=== PATIENT | female | born 1985 | race Caucasian/White ===

== ENCOUNTER 2018-03-17 17:40 | Emergency (ER) | END 2018-03-17 20:56 | disposition home or self-care (01) ==

== ENCOUNTER 2018-03-20 17:01 | Emergency (ER) | END 2018-03-20 17:50 | disposition home or self-care (01) ==

== ENCOUNTER 2018-03-25 17:40 | Emergency (ER) | END 2018-03-25 21:16 | disposition home or self-care (01) ==

== ENCOUNTER 2018-10-08 11:31 | Emergency (ER) | payer OTHER ==
[~2018-10-08] VITALS: Ht 160 cm; Wt 65.4 kg
[~2018-10-08 11:31] MED LIST: CEPH-443 PO; IBUP-1542 PO
[2018-10-08 11:34] VITALS: Ht 160 cm; Wt 65.4 kg
[2018-10-08] MEDS ORDERED: FLUORESCEIN STRIP LEFT EYE ONE (13:00)
[2018-10-08] MEDS ORDERED: TETRACAINE 0.5% 4 ML OPH LEFT EYE ONE (13:00)
[2018-10-08] MEDS ORDERED: CPR3OO3.5 LEFT EYE (13:36)
--- NOTE | 2018-10-08 14:42 | ERD ---
ER Documentation Chief Complaint Chief Complaint SOMETHING WENT INTO EYE @ WORK HPI 33-year-old female presenting to the emergency department complaining of foreign body sensation to the left eye while at work just prior to arrival. She states that she believes a piece of plastic went into her eye. Symptoms are constant. She also reports headache. She denies any visual changes. She does not wear contacts or glasses. She denies any fevers, chills, or other symptoms at this time. ROS All systems reviewed and are negative except as per history of present illness. Medications Home Meds Active Scripts Ciprofloxacin Opht* (Ciloxan*) 0.3%-3.5 Opht Oint, 1 APPLIC LEFT EYE TID, #1 BOT Prov:KIM SHETH PA-C 10/08/18 Ibuprofen* (Motrin*) 600 Mg Tab, 600 MG PO Q6, #30 TAB Prov:MAMADOU NOEL PA-C 03/17/18 Cephalexin* (Keflex*) 500 Mg Capsule, 500 MG PO QID for 7 Days, CAP Prov:MAMADOU NOEL PA-C 03/17/18 Allergies Allergies: Coded Allergies: No Known Allergy (Unverified , 03/20/18) PMhx/Soc Hx Miscellaneous Medical Probl: Yes (GALL STONES) Hx Alcohol Use: No Hx Substance Use: No Hx Tobacco Use: No FmHx Family History: No diabetes Physical Exam Vitals Vital Signs Date Temp Pulse Resp B/P (MAP) Pulse Ox O2 O2 Flow FiO2 Time Delivery Rate 10/08/18 98.8 68 18 134/64 98 11:34 (87) Physical Exam Const: No acute distress Head: Atraumatic Eyes: Left conjunctival injection. Extra ocular movements intact bilaterally. No obvious foreign body noted to the left eye. ENT: Normal External Ears, Nose and Mouth. Neck: Full range of motion. No meningismus. Resp: No respiratory distress. Skin: No petechiae or rashes Back: No midline or flank tenderness Ext: No cyanosis, or edema Neur: Awake and alert Psych: Anxious affect. Results 24 hrs Laboratory Tests Test 10/08/18 14:47 POC Beta HCG, Qualitative NEGATIVE Current Medications Medications Dose Sig/Georgie Start Time Status Last (Trade) Ordered Route PRN Stop Time Admin Dose Reason Admin Tetracaine 1 drop ONCE ONCE 10/08/18 DC HCl LEFT EYE 13:00 (Tetracaine 10/08/18 13:01 0.5% Steri-Unit Odalys) Fluorescein 1 strip ONCE ONCE 10/08/18 DC Sodium LEFT EYE 13:00 ([id number] 10/08/18 13:01 p) Procedures/MDM 33-year-old female presented to the emergency department complaining of left eye pain. Sauceda lamp examination was normal. There was no evidence of foreign body or corneal ulceration. During the patient's ED course, she became agitated and told nursing staff she was hearing voices. Upon my reexamination of the patient, she seemed agitated and was transferred to ED 1 for further psych evaluation and treatment if required. Patient remained hemodynamically stable under my direct care. Eye Exam w/ Wood's Lamp -left eye Visual Acuity: 20/30 left, 20/25 right, 20/30 bilateral. Visual Nava: Intact in all four quadrants bilaterally Lac ducts/glands: No swelling Lids w/ evertion: Normal, no foreign body Conj/[place]: Clear, negative Fluorescein/Kylie's Anterior Chamber: Clear Departure Diagnosis: Primary Impression: Conjunctivitis Conjunctivitis type: acute Acute conjunctivitis type: unspecified Laterality: left Qualified Codes: H10.32 - Unspecified acute conjunctivitis, left eye Additional Impression: Encounter for psychiatric assessment Condition: Fair Patient Instructions: Conjunctivitis Caused by Irritation Referrals: [facility] Hours: Mon - Fri 9:00 AM - 5:00 PM Additional Instructions: Specialist:Usted tiene efren condicin mdica que requiere que radha a un especialista dentro de los prximos 1-2 singh.POR FAVOR,CON BROCK SEGUIMIENTO DE PRIMARIA PHSICIAN refferal. SI USTED NO TIENE UN MDICO GENERAL Y / O USTED NO PUEDE PAGAR abdullahi a un mdico,los siguientes harris RECURSOS sido suministrado a usted. ES BROCK RESPONSABILIDAD PARA SER VISTOS POR EL ESPECIALISTA: OPTHALMOLOGY KIM SHETH PA-C Oct 08, 2018 14:42
--- NOTE | 2018-10-08 19:03 | ERD ---
ER Documentation Chief Complaint Chief Complaint Agitation HPI The patient is a 32-year-old female, presenting to ED 2 for left eye irritation. She was examined and treated by the PA who discharged her. When the nurse came to discharge her she became very agitated, responding to internal stimuli, she was therefore transferred to ED1 for further evaluation. She denies auditory/visual hallucination, homicidal/suicidal ideation. She feels very anxious and afraid of the surrounding of unclear etiology. She does not smoke nor drink or does illicit drug Past medical history: Anxiety, taking Ativan Past surgical history: Cholecystectomy ROS All systems reviewed and are negative except as per history of present illness. Medications Home Meds Active Scripts Ciprofloxacin Opht* (Ciloxan*) 0.3%-3.5 Opht Oint, 1 APPLIC LEFT EYE TID, #1 BOT Prov:KIM SHETH PA-C 10/08/18 Discontinued Scripts Ibuprofen* (Motrin*) 600 Mg Tab, 600 MG PO Q6, #30 TAB Prov:MAMADOU NOEL PA-C 03/17/18 Cephalexin* (Keflex*) 500 Mg Capsule, 500 MG PO QID for 7 Days, CAP Prov:MAMADOU NOEL PA-C 03/17/18 Allergies Allergies: Coded Allergies: No Known Allergy (Unverified , 03/20/18) PMhx/Soc Medical and Surgical Hx: pt denies Medical Hx, pt denies Surgical Hx History of Surgery: Yes (gall bladder) Hx Miscellaneous Medical Probl: Yes (GALL STONES) Hx Alcohol Use: No Hx Substance Use: No Hx Tobacco Use: No Physical Exam Vitals Vital Signs Date Temp Pulse Resp B/P (MAP) Pulse Ox O2 O2 Flow FiO2 Time Delivery Rate 10/08/18 58 18 110/72 98 Room Air 17:48 (85) 10/08/18 98.8 68 18 134/64 98 11:34 (87) Physical Exam Const: No acute distress. Head: Atraumatic. Eyes: Normal Conjunctiva. ENT: Normal External Ears, Nose and Mouth. Neck: Full range of motion. No meningismus. Resp: Clear to auscultation bilaterally. Cardio: Regular rate and rhythm. Abd: Soft, non distended, normal bowel sounds, non tender. Skin: No petechiae or rashes. Back: No midline or flank tenderness. Ext: No cyanosis, or edema. Neur: Awake and alert. No focal deficit Psych: Anxious Result Diagram: 10/08/18 1450 10/08/18 1450 Results 24 hrs Laboratory Tests Test 10/08/18 14:45 10/08/18 14:47 10/08/18 14:50 Urine Color YELLOW Urine Clarity SLIGHTLY CLOUDY Urine pH 5.0 Urine Specific [place] 1.024 Urine Ketones NEGATIVE mg/dL Urine Nitrite NEGATIVE mg/dL Urine Bilirubin NEGATIVE mg/dL Urine Urobilinogen NEGATIVE mg/dL Urine Leukocyte Esterase NEGATIVE Magalis/ul Urine Microscopic RBC 4 /HPF Urine Microscopic WBC 2 /HPF Urine Squamous Epithelial Cells FEW /HPF Urine Bacteria FEW /HPF Urine Mucus FEW /HPF Urine Hemoglobin NEGATIVE mg/dL Urine Glucose NEGATIVE mg/dL Urine Total Protein NEGATIVE mg/dl Urine Opiates Screen Negative Urine Barbiturates Negative Urine Amphetamines Screen Negative Urine Benzodiazepines Screen Positive Urine Cocaine Screen Negative Urine Cannabinoids Negative POC Beta HCG, Qualitative NEGATIVE White Blood Count 7.1 10^3/ul Red Blood Count 5.22 10^6/ul Hemoglobin 14.0 g/dl Hematocrit 43.9 % Mean Corpuscular Volume 84.1 fl Mean Corpuscular Hemoglobin 26.8 pg Mean Corpuscular 31.9 g/dl Hemoglobin Concent Red Cell Distribution Width 13.6 % Platelet Count 334 10^3/UL Mean Platelet Volume 9.6 fl Immature Granulocytes % 0.300 % Neutrophils % 53.1 % Lymphocytes % 36.4 % Monocytes % 8.4 % Eosinophils % 1.4 % Basophils % 0.4 % Nucleated Red Blood Cells % 0.0 /100WBC Immature Granulocytes # 0.020 10^3/ul Neutrophils # 3.8 10^3/ul Lymphocytes # 2.6 10^3/ul Monocytes # 0.6 10^3/ul Eosinophils # 0.1 10^3/ul Basophils # 0.0 10^3/ul Nucleated Red Blood Cells # 0.0 10^3/ul Sodium Level 143 mmol/L Potassium Level 3.7 mmol/L Chloride Level 108 mmol/L Carbon Dioxide Level 24 mmol/L Anion Gap 11 Blood Urea Nitrogen 12 mg/dl Creatinine 0.58 mg/dl Est Glomerular Filtrat > 60 mL/min Rate mL/min Glucose Level 97 mg/dl Calcium Level 9.2 mg/dl Total Bilirubin 0.3 mg/dl Direct Bilirubin 0.00 mg/dl Indirect Bilirubin 0.3 mg/dl Aspartate Amino 27 IU/L Transf (AST/SGOT) Alanine 29 IU/L Aminotransferase (ALT/SGPT) Alkaline Phosphatase 79 IU/L Total Protein 8.0 g/dl Albumin 4.6 g/dl Globulin 3.40 g/dl Albumin/Globulin Ratio 1.35 Beta HCG, Quantitative < 2.4 mIU/ml Salicylates Level < 1.0 mg/dl Acetaminophen Level < 10.0 ug/ml Ethyl Alcohol Level < 10.0 mg/dl Current Medications Medications Dose Sig/Georgie Start Time Status Last (Trade) Ordered Route PRN Stop Time Admin Dose Reason Admin Tetracaine 1 drop ONCE ONCE 10/08/18 DC HCl LEFT EYE 13:00 (Tetracaine 10/08/18 13:01 0.5% Steri-Unit Odalys) Fluorescein 1 strip ONCE ONCE 10/08/18 DC Sodium LEFT EYE 13:00 ([id number] 10/08/18 13:01 p) Procedures/MDM MEDICAL MAKING DECISION: The patient is a 33-year-old female, presenting with acute psychosis of unclear etiology, most likely due to acute anxiety The differential diagnoses considered include but are not limited to decompensated psychiatric illness, anxiety attack, panic attack, substance abuse Departure Diagnosis: Primary Impression: Psychosis Condition: Fair Referrals: [facility] Hours: Mon - Sun 9:00 AM - 5:00 PM Additional Instructions: She is medically cleared for psychiatric evaluation and admission MARCELLO RASMUSSEN MD Oct 08, 2018 19:03
--- NOTE | 2018-10-08 20:03 | PSY ---
Date/Time of Note Date/Time of Note DATE: 10/08/18 TIME: 18:46 Psychiatric Subjective Eval Consent Pt consented to telemedicine: Yes Subjective Evaluation Patient location: emergency Chief Complaint: SOMETHING WENT INTO EYE @ WORK History of present illness Received report from RN and reviewed chart. Upon connecting to robot discovered patient did not speak Macedonian (Kittitian only). This was not mentioned to me in report from RN. Staff report they have no one to translate right and will call back when they have a director manufacturing engineering available. Medical history Problems Medical Problems: (1) Conjunctivitis Status: Acute (2) Encounter for psychiatric assessment Status: Acute (3) Encounter for removal of sutures Status: Acute (4) Encounter for removal of sutures Status: Acute (5) Encounter for wound re-check Status: Acute (6) Laceration Status: Acute Allergies: Coded Allergies: No Known Allergy (Unverified , 03/20/18) Psychiatric Objective Eval Mental Status Examination: Laboratory Results Laboratory Tests Test 10/08/18 14:45 10/08/18 14:47 10/08/18 14:50 Urine Color YELLOW Urine Clarity SLIGHTLY CLOUDY Urine pH 5.0 Urine Specific [place] 1.024 Urine Ketones NEGATIVE mg/dL Urine Nitrite NEGATIVE mg/dL Urine Bilirubin NEGATIVE mg/dL Urine Urobilinogen NEGATIVE mg/dL Urine Leukocyte Esterase NEGATIVE Magalis/ul Urine Microscopic RBC 4 /HPF Urine Microscopic WBC 2 /HPF Urine Squamous Epithelial Cells FEW /HPF Urine Bacteria FEW /HPF Urine Mucus FEW /HPF Urine Hemoglobin NEGATIVE mg/dL Urine Glucose NEGATIVE mg/dL Urine Total Protein NEGATIVE mg/dl Urine Opiates Screen Negative Urine Barbiturates Negative Urine Amphetamines Screen Negative Urine Benzodiazepines Screen Positive Urine Cocaine Screen Negative Urine Cannabinoids Negative POC Beta HCG, Qualitative NEGATIVE White Blood Count 7.1 10^3/ul Red Blood Count 5.22 10^6/ul Hemoglobin 14.0 g/dl Hematocrit 43.9 % Mean Corpuscular Volume 84.1 fl Mean Corpuscular Hemoglobin 26.8 pg Mean Corpuscular 31.9 g/dl Hemoglobin Concent Red Cell Distribution Width 13.6 % Platelet Count 334 10^3/UL Mean Platelet Volume 9.6 fl Immature Granulocytes % 0.300 % Neutrophils % 53.1 % Lymphocytes % 36.4 % Monocytes % 8.4 % Eosinophils % 1.4 % Basophils % 0.4 % Nucleated Red Blood Cells % 0.0 /100WBC Immature Granulocytes # 0.020 10^3/ul Neutrophils # 3.8 10^3/ul Lymphocytes # 2.6 10^3/ul Monocytes # 0.6 10^3/ul Eosinophils # 0.1 10^3/ul Basophils # 0.0 10^3/ul Nucleated Red Blood Cells # 0.0 10^3/ul Sodium Level 143 mmol/L Potassium Level 3.7 mmol/L Chloride Level 108 mmol/L Carbon Dioxide Level 24 mmol/L Anion Gap 11 Blood Urea Nitrogen 12 mg/dl Creatinine 0.58 mg/dl Est Glomerular Filtrat > 60 mL/min Rate mL/min Glucose Level 97 mg/dl Calcium Level 9.2 mg/dl Total Bilirubin 0.3 mg/dl Direct Bilirubin 0.00 mg/dl Indirect Bilirubin 0.3 mg/dl Aspartate Amino 27 IU/L Transf (AST/SGOT) Alanine 29 IU/L Aminotransferase (ALT/SGPT) Alkaline Phosphatase 79 IU/L Total Protein 8.0 g/dl Albumin 4.6 g/dl Globulin 3.40 g/dl Albumin/Globulin Ratio 1.35 Beta HCG, Quantitative < 2.4 mIU/ml Salicylates Level < 1.0 mg/dl Acetaminophen Level < 10.0 ug/ml Ethyl Alcohol Level < 10.0 mg/dl Assessment and Plan Assessment/Diagnosis Diagnosis Call back when director manufacturing engineering available. Recommendation/Plan Discharge Disposition: Other (Other) Legal Status: Voluntary CORAL COELHO MD Oct 08, 2018 18:57
[2018-10-08] MEDS ORDERED: LORAZEPAM 1 MG TAB PO ONE (22:30)
--- NOTE | 2018-10-09 00:25 | PSY ---
Date/Time of Note Date/Time of Note DATE: 10/09/18 TIME: 00:07 Psychiatric Subjective Eval Consent Pt consented to telemedicine: Yes Subjective Evaluation Patient location: emergency Chief Complaint: SOMETHING WENT INTO EYE @ WORK Reason for consult: hearing voices Hospitalization: no Medical history Problems Medical Problems: (1) Conjunctivitis Status: Acute (2) Encounter for psychiatric assessment Status: Acute (3) Encounter for removal of sutures Status: Acute (4) Encounter for removal of sutures Status: Acute (5) Encounter for wound re-check Status: Acute (6) Laceration Status: Acute (7) Psychosis Status: Acute Allergies: Coded Allergies: No Known Allergy (Unverified , 03/20/18) Social History Marital status: single Psychiatric Objective Eval Mental Status Examination: Laboratory Results Laboratory Tests Test 10/08/18 14:45 10/08/18 14:47 10/08/18 14:50 Urine Color YELLOW Urine Clarity SLIGHTLY CLOUDY Urine pH 5.0 Urine Specific [place] 1.024 Urine Ketones NEGATIVE mg/dL Urine Nitrite NEGATIVE mg/dL Urine Bilirubin NEGATIVE mg/dL Urine Urobilinogen NEGATIVE mg/dL Urine Leukocyte Esterase NEGATIVE Magalis/ul Urine Microscopic RBC 4 /HPF Urine Microscopic WBC 2 /HPF Urine Squamous Epithelial Cells FEW /HPF Urine Bacteria FEW /HPF Urine Mucus FEW /HPF Urine Hemoglobin NEGATIVE mg/dL Urine Glucose NEGATIVE mg/dL Urine Total Protein NEGATIVE mg/dl Urine Opiates Screen Negative Urine Barbiturates Negative Urine Amphetamines Screen Negative Urine Benzodiazepines Screen Positive Urine Cocaine Screen Negative Urine Cannabinoids Negative POC Beta HCG, Qualitative NEGATIVE White Blood Count 7.1 10^3/ul Red Blood Count 5.22 10^6/ul Hemoglobin 14.0 g/dl Hematocrit 43.9 % Mean Corpuscular Volume 84.1 fl Mean Corpuscular Hemoglobin 26.8 pg Mean Corpuscular 31.9 g/dl Hemoglobin Concent Red Cell Distribution Width 13.6 % Platelet Count 334 10^3/UL Mean Platelet Volume 9.6 fl Immature Granulocytes % 0.300 % Neutrophils % 53.1 % Lymphocytes % 36.4 % Monocytes % 8.4 % Eosinophils % 1.4 % Basophils % 0.4 % Nucleated Red Blood Cells % 0.0 /100WBC Immature Granulocytes # 0.020 10^3/ul Neutrophils # 3.8 10^3/ul Lymphocytes # 2.6 10^3/ul Monocytes # 0.6 10^3/ul Eosinophils # 0.1 10^3/ul Basophils # 0.0 10^3/ul Nucleated Red Blood Cells # 0.0 10^3/ul Sodium Level 143 mmol/L Potassium Level 3.7 mmol/L Chloride Level 108 mmol/L Carbon Dioxide Level 24 mmol/L Anion Gap 11 Blood Urea Nitrogen 12 mg/dl Creatinine 0.58 mg/dl Est Glomerular Filtrat > 60 mL/min Rate mL/min Glucose Level 97 mg/dl Calcium Level 9.2 mg/dl Total Bilirubin 0.3 mg/dl Direct Bilirubin 0.00 mg/dl Indirect Bilirubin 0.3 mg/dl Aspartate Amino 27 IU/L Transf (AST/SGOT) Alanine 29 IU/L Aminotransferase (ALT/SGPT) Alkaline Phosphatase 79 IU/L Total Protein 8.0 g/dl Albumin 4.6 g/dl Globulin 3.40 g/dl Albumin/Globulin Ratio 1.35 Beta HCG, Quantitative < 2.4 mIU/ml Salicylates Level < 1.0 mg/dl Acetaminophen Level < 10.0 ug/ml Ethyl Alcohol Level < 10.0 mg/dl Assessment and Plan Recommendation/Plan Multiple antipsychotics: Yes Discharge Disposition: Psychiatric inpatient Legal Status: Place involuntary hold Assessment Additional comments: IDENTIFYING INFORMATION: 33 year old Female patient who is currently located at the hospital and for whom psychiatric consultation was requested. SOURCES OF INFORMATION: The patient who appears to be somewhat reliable and the medical records; the nursing staff. [employer] [id number], assisted with the interview from [place]. CHIEF COMPLAINT: "I cannot see the darkness". HISTORY OF PRESENT ILLNESS: The patient was interviewed via telemedicine in the presence of and under the supervision of nursing staff of the hospital. The consent to conducting this interview via telemedicine was obtained by the nursing staff at the hospital. ZULMA Sorensen reports that the patient presented with AH, thinking that someone is a fter her. Pt grabbed a registration staff member, cornered her and stated that she needed help because someone was after her trying to kill her. The patient reports being afraid of , reports that she cannot see "darkness", has been anxious, admits to being depressed, having insomnia, having fatigue, low appetite. Reports that she was having a lot of anxiety after the doctor used some equipment to check her eye and she could only see black. Reports that she thinks she hears a voice calling her name at times when she is showering and also when she is at work. she reports that her cousin told her that he needed $5, explained that she should not mention this to anyone, and therefore she was scared. The patient denies having SI, anhedonia. The patient denies using alcohol heavily or regularly. The patient denies using any other substances. In terms of past psychiatric history, the patient reports having a history of no past psychiatric hospitalizations. The patient reports having a history of no past suicide attempts. Past medication trials: clonazepam. The patient denies ever having a history of AH, delusions, persistent or serious depression or anhedonia, manic or hypomanic episodes. PAST MEDICAL HISTORY: none. CURRENT MEDICATIONS: none. ALLERGIES TO MEDICATIONS: NKDA LABORATORY TESTS: CBC wnl, CMP wnl, UDS + benzos, betahCG negative, alcohol level not detected. SOCIAL HISTORY: lives with daughter, parents, works in [employer], no access to firearms. FAMILY HISTORY: Noncontributory for major depressive disorder, bipolar disorder, schizophrenia. REVIEW OF SYSTEMS: Constitutional (e.g., fever, weight loss): negative; Eyes, Ears, Nose, Mouth, Throat: negative; Cardiovascular: negative; Respiratory: negative; Gastrointestinal: negative; Genitourinary: negative; Musculoskeletal: negative; Integumentary (skin and/or breast): negative; Neurological: negative; Psychiatric: as per HPI; Endocrine: negative; Hematologic/Lymphatic: negative; Allergic/Immunologic: negative. MENTAL STATUS EXAMINATION: General Appearance and Behavior: anxious, cooperative with the interview, pleasant with the current interviewer, makes fair eye contact, fairly groomed, no abnormal movements noted, Speech: Regular rate, regular rhythm, normal latency, normal volume, somewhat decreased amount, Flow of thought: sequential, logical, goal-directed at times, illogical at times, Content of thought: positive for auditory hallucinations, no visual hallucinations, positive for delusions, negative for suicidal ideation; no homicidal ideation, Mood: "depressed", Affect: dysthymic, dysphoric, not reactive, Attention: normal based on the interview, Insight: poor, Judgment: poor, Memory: normal based on the interview, Sensorium: alert and oriented to person, place and date. ASSESSMENT: The patient's presentation and history are consistent with the diagnosis of unspecified psychotic disorder. The patient presents with an exacerbation of psychosis in the context of medication noncompliance, psychosocial stressors. PLAN: - Medication management: Would start Risperdal 0.5 mg by mouth twice a day. Would start haloperidol 5 mg IM PRN severe agitation q4 hours. Would start diphenhydramine 50 mg IM PRN severe agitation q4 hours. Would start lorazepam 2 mg IM PRN severe agitation q4 hours Will defer to the inpatient psychiatry team for other medication changes. - Labs: No other laboratory tests are needed at this time. - Psychotherapy: Provided supportive psychotherapy and psychoeducation. - Disposition: Would recommend involuntary admission to the inpatient psychiatric unit given the severity of the patient's psychiatric condition and the fact that the patient is an imminent danger to self and/or others so long as the patient has been cleared medically for admission to psychiatry. Inpatient psychiatric admission is at this time the least restrictive environment where the patient can receive the psychiatric care that is needed. Would place on suicide precautions. The patient fulfills criteria for being placed on an involuntary ho ld for being a danger to others due to a psychiatric disorder. I called the emergency room physician who is taking care of the patient to discuss about the above plan but the emergency room physician is not available at this time. I left my phone number with the hospital staff requesting a callback so that the emergency room physician can reach me when they become available. PRANAV SOUSA MD Oct 09, 2018 00:17
--- NOTE | 2018-10-09 02:17 | EN ---
Date/Time of Note Date/Time of Note DATE: 10/09/18 TIME: 02:16 (KIM WHITTEN) ER Progress Note Psychiatric Observation Note: Indication: Psychosis Duration: Greater than 4 hours Family history: As documented in original HPI The patient was observed with serial exams over the above timeframe. The patient continued to be well-appearing, and observation continued without complication. All other needs have been met during emergency department stay. Routine psychiatric medications ordered: Pending placement Hold status: Patient is still pending telemetry medicine psychiatry evaluation. He continued to be disorganized and agitated requiring sedation and only now is awake to have a conversation with the telemetry medicine psychiatrist. Placement status: Pending placement (KIM WHITTEN) I assumed care at 6 AM. Patient remains medically cleared. Patient's been started on recommended psychiatric medications. Plan: Pending placement for 515, patient will continue to be monitored with ongoing psychiatric medications and medications as needed for agitation. (LEOPOLDO CASSIDY) KIM WHITTEN Oct 09, 2018 02:17 LEOPOLDO CASSIDY Oct 09, 2018 08:51
[2018-10-09] MEDS ORDERED: RISPERIDONE 0.25 MG TAB PO ONE (09:00)
[2018-10-09 10:50] VITALS: BP 132/98; PULSE 86; RESP 16
== END 2018-10-09 10:55 ==
LOC: FTE 11:31 → E/R 10-09 10:55
DX: F29 Unspecified psychosis not due to a substance or known physiological condition (principal); H10.32 Unspecified acute conjunctivitis, left eye
CPT/HCPCS: 80053; 80307; 81001; 81025; 84702; 85025; Z7502; Z7610; 81003